=== PATIENT | female | born 1950 | race Caucasian/White ===

== ENCOUNTER → 2017-04-26 | Outpatient (CLI) | payer MEDICARE, BC ==
--- NOTE | 2017-04-26 16:24 | BD ---
EXAMINATION TYPE: MG DEXA axial skeleton. DATE OF EXAM: 04/26/2017 COMPARISON: 10/10/2013 CLINICAL HISTORY: 66-year-old female osteoporosis Height: 59 IN Weight: 121 LBS FRAX RISK QUESTIONS: Alcohol (3 or more units per day): NO Family History (Parent hip fracture): NO Glucocorticoids (More than 3mos): NO (Ex: prednisone, prednisolone, methylprednisolone, dexamethasone, and hydrocortisone). History of Fracture in Adulthood: NO Secondary Osteoporosis: 1. Type 1 Diabetes: NO 2. Hyperthyroidism: NO 3. Menopause before 45: NO 4. Malnutrition: NO 5. Chronic liver disease: NO Rheumatoid Arthritis: NO Current Tobacco Use: NO RISK FACTORS HISTORY OF: Family History of Osteoporosis: NO Active: YES Diet low in dairy products/other sources of calcium: YES Postmenopausal woman: AGE 48 Take estrogen and/or progesterone medications: NOT NOW How long: AGE 48 - 54 MEDICATIONS: Additional Medications: CALCIUM, VIT D, DETROL LA, LOVASTATIN, ATENOLOL, BABY ASPIRIN, MULTI VIT, EXAM MEASUREMENTS: Bone mineral densitometry was performed using the [employer] System. Bone mineral density as measured about the Lumbar spine is: ----- L1-L4(G/cm2): 0.919 T Score Values are as follows: ----- L2: -2.2 ----- L3: -1.7 ----- L4: -2.7 ----- L1-L4: -2.2 Bone mineral density has: Increased 2.5% since study of: 10/10/2013 Bone mineral density about the R hip (g/cm2): 0.894 Bone mineral density about the L hip (g/cm2): 0.890 T Score values are as follows: -----R Neck: -1.0 -----L Neck: -1.1 -----R Total: 0.0 -----L Total: -0.1 Bone mineral density has: Increased 6.0% since study of: 10/10/2013 IMPRESSION: Osteopenia (T Score between -2.5 and -1 as noted by T score values in the lumbar spine and left hip). There is slightly increased risk of fracture and the patient may be considered for treatment. Re-Screen 2-5 years. NOTE: T-SCORE=SD OF THE YOUNG ADULT MEAN.
--- NOTE | 2017-04-27 13:40 | MM ---
Reason for exam: screening (asymptomatic). Last mammogram was performed 1 year and 4 months ago. History: Patient is postmenopausal. Family history of premenopausal breast cancer in sister at age 40 and breast cancer in aunt at age 55. Took estrogen for 6 years beginning at age 48. Physical Findings: A clinical breast exam by your physician is recommended on an annual basis and results should be correlated with mammographic findings. MG 3D Screening Mammo W/Cad Bilateral CC and MLO view(s) were taken. Prior study comparison: December 17, 2015, bilateral MG screening mammo w CAD. October 10, 2013, bilateral digital screening mammo w/CAD. The breast tissue is heterogeneously dense. This may lower the sensitivity of mammography. Nodular density central right breast 6.1cm from nipple. This finding is changed when compared with previous exams. ASSESSMENT: Incomplete: need additional imaging evaluation, BI-RAD 0 RECOMMENDATION: Special view mammogram and ultrasound of the right breast. [facility] will attempt to contact patient to return for supplemental views and ultrasound.
== END | disposition home or self-care (01) ==
LOC: RADMAMWWP 12:55
PROVIDERS: ATTEND Obstetrics & Gynecology
DX: Z12.31 Encounter for screening mammogram for malignant neoplasm of breast (principal); M85.89 Other specified disorders of bone density and structure, multiple sites
CPT/HCPCS: 77080; 77063; G0202

== ENCOUNTER → 2017-05-05 | Outpatient (CLI) | payer MEDICARE, BC ==
--- NOTE | 2017-05-05 13:44 | MM ---
Reason for exam: additional evaluation requested from abnormal screening. Last mammogram was performed less than 1 month ago. History: Patient is postmenopausal. Family history of premenopausal breast cancer in sister at age 40 and breast cancer in aunt at age 55. Took estrogen for 6 years beginning at age 48. Physical Findings: Nurse did not find any significant physical abnormalities on exam. MG 3D Work Up W/Cad RT Spot compression CC, spot compression MLO, and LM view(s) were taken of the right breast. Prior study comparison: April 26, 2017, bilateral MG 3d screening mammo w/cad. December 17, 2015, bilateral MG screening mammo w CAD. The breast tissue is heterogeneously dense. This may lower the sensitivity of mammography. The previously described upper central right breast mass persists on additional views but was retrospectively present dating back to 2010 and can be considered benign. These results were verbally communicated with the patient and result sheet given to the patient on 05/05/17. ASSESSMENT: Benign, BI-RAD 2 RECOMMENDATION: Return to routine screening mammogram schedule for both breasts.
== END | disposition home or self-care (01) ==
LOC: RADMAMWWP 12:45
PROVIDERS: ATTEND Obstetrics & Gynecology
DX: R92.8 Other abnormal and inconclusive findings on diagnostic imaging of breast (principal)
CPT/HCPCS: G0206; G0279

== ENCOUNTER → 2017-06-08 | Outpatient (CLI) | payer MEDICARE, BC ==
--- NOTE | 2017-06-08 13:35 | US ---
EXAMINATION TYPE: US thyroid st tissue head/neck DATE OF EXAM: 06/08/2017 COMPARISON: 06/18/2016 prior thyroid ultrasound. CLINICAL HISTORY: E04.9 Goiter. GLAND SIZE: Right Lobe: 3.8 x 1.3 x 1.4cm Overall Parenchyma: heterogenous Left Lobe: 4.1 x 1.3 x 1.4 cm Overall Parenchyma: heterogeneous Isthmus Thickness: 0.3 cm NODULES RIGHT: # of nodules measured on right: 2 1. 0.6 X 0.5 x 0.5 cm hypoechoic solid nodule at the lower pole with well-defined margins; . This nodule is wider than tall and shows no intranodular vascularity. Prior size: 0.6 x 0.5 x 0.5 cm 2. 1.1 X 1.0 x 0.9 cm echogenic solid nodule at the lower pole with well-defined margins; . This no dule is wider than tall and shows no intranodular vascularity. Prior size: 1.0x 0.9 x 1.0 cm LEFT: # of nodules measured on left: 3 1. 1.1 X 09 x 1.3 cm isoechoic mixed nodule at the lower pole with well-defined margins; . This no dule is wider than tall and shows no intranodular vascularity. Prior size: 1.0 x 0.8 x 0.8 cm 2. 1.3 X 0.9 x 1.4 cm isoechoic mixed nodule at the lower pole with well-defined margins; . This no dule is wider than tall and shows no intranodular vascularity. Prior size: 1.4 x 0.7 x 0.9 cm 3. 1.1 X 1.0 x 1.1 cm isoechoic mixed nodule at the mid pole with well-defined margins; . This nodu le is wider than tall and shows no intranodular vascularity. Prior size: 1.1 x 0.7 x 1.0 cm ISTHMUS: # of nodules measured in the isthmus: 0 Bilateral neck scanned, no evidence of lymphadenopathy. 2 nodules on right, 3 nodules on left as described above. IMPRESSION: Overall stable findings multiple roughly 1 cm nodules redemonstrated bilaterally without significant interval change. No new greater than 1 cm solid or cystic nodules are seen.
== END ==
LOC: RADUSWWP 12:18
PROVIDERS: ATTEND Family Medicine
DX: E04.2 Nontoxic multinodular goiter (principal)
CPT/HCPCS: 76536

== ENCOUNTER → 2017-12-14 | Outpatient (CLI) | payer MEDICARE, BC ==
--- NOTE | 2017-12-14 15:07 | US ---
EXAMINATION TYPE: US thyroid st tissue head/neck DATE OF EXAM: 12/14/2017 COMPARISON: Thyroid ultrasound June 08, 2017 CLINICAL HISTORY: E04.1 Nontoxic Single Thyroid Nodule. GLAND SIZE: Right Lobe: 3.2 x 1.4 x 0.9 cm Overall Parenchyma: homogenous Left Lobe: 3.5 x 1.3 x 1.2 cm Overall Parenchyma: homogeneous Isthmus Thickness: 0.3 cm NODULES RIGHT: # of nodules measured on right: 2 1. 0.6 X 0.4 x 0.4 cm hypoechoic mixed nodule at the lower pole with well-defined margins. This no dule is wider as is tall and shows no intranodular vascularity. Prior size: 0.6 x 0.5 x 0.5 cm 2. 0.9 X 0.8 x 0.8 cm isoechoic solid nodule at the lower pole with well-defined margins. This nodu le is wider as is tall and shows no intranodular vascularity. Prior size: 1.1 x 1.0 x 0.9 cm LEFT: # of nodules measured on left: 3 1. 0.9 X 0.7 x 0.97 cm isoechoic clustered nodule at the lower pole with well-defined margins. Thi s nodule is taller than wide and shows no intranodular vascularity. Prior size: 1.1 x 0.9 x 1.4 cm 2. 1.2 X 0.9 x 0.8 cm isoechoic mixed nodule at the lower pole with well-defined margins. This nodu le is wider than tall. Prior size: 1.3 x 0.9 x 1.4 cm 3. 1.0 X 1.0 x 1.0 cm isoechoic mixed nodule at the mid pole with well-defined margins. This nodule is wider as is tall and shows intranodular vascularity. Prior size: 1.1 x 1.0 x 1.1 cm ISTHMUS: # of nodules measured in the isthmus: 0 Bilateral neck scanned, no evidence of lymphadenopathy. Small size thyroid with scattered small nodules are redemonstrated. No significant change from prior. IMPRESSION: As above, no new suspicious greater than 1 cm solid or cystic nodules seen.
== END | disposition home or self-care (01) ==
LOC: RADUSWWP 13:27
PROVIDERS: ATTEND Family Medicine
DX: E04.2 Nontoxic multinodular goiter (principal)
CPT/HCPCS: 76536

== ENCOUNTER → 2018-04-27 | Outpatient (CLI) | payer MEDICARE, BC ==
--- NOTE | 2018-05-01 10:31 | MM ---
Reason for exam: screening (asymptomatic). Last mammogram was performed 1 year ago. History: Patient is postmenopausal. Family history of premenopausal breast cancer in sister at age 40 and breast cancer in aunt at age 55. Took estrogen for 6 years beginning at age 48. Physical Findings: A clinical breast exam by your physician is recommended on an annual basis and results should be correlated with mammographic findings. MG 3D Screening Mammo W/Cad Bilateral CC and MLO view(s) were taken. Prior study comparison: May 05, 2017, right breast MG 3d work up w/cad RT. April 26, 2017, bilateral MG 3d screening mammo w/cad. The breast tissue is heterogeneously dense. This may lower the sensitivity of mammography. There is chronic nodularity in the right breast. No significant changes when compared with prior studies. ASSESSMENT: Benign, BI-RAD 2 RECOMMENDATION: Routine screening mammogram of both breasts in 1 year.
== END | disposition home or self-care (01) ==
LOC: RADMAMWWP 12:41
PROVIDERS: ATTEND Obstetrics & Gynecology
DX: Z12.31 Encounter for screening mammogram for malignant neoplasm of breast (principal)
CPT/HCPCS: 77063; 77067

== ENCOUNTER → 2018-08-03 | Outpatient (CLI) | payer MEDICARE, BC ==
--- NOTE | 2018-08-04 07:23 | US ---
EXAMINATION TYPE: US thyroid st tissue head/neck DATE OF EXAM: 08/03/2018 COMPARISON: 12/14/2017 and 06/08/2017 CLINICAL HISTORY: E04.1 goiter. follow up nodules. Hx of bx- normal. No thyroid meds. GLAND SIZE: Right Lobe: 3.7 x 1.1 x 1.2 cm Overall Parenchyma: homogenous Left Lobe: 3.7 x 1.2 x 1.0 cm Overall Parenchyma: homogeneous Isthmus Thickness: 0.2 cm NODULES RIGHT: # of nodules measured on right: 2 1. 0.6 X 0.4 x 0.3 cm hypoechoic mixed nodule at the lower pole with well-defined margins. This no dule is wider than tall and shows no intranodular vascularity. Prior size: 0.6 x 0.4 x 0.4 cm 2. 1.0 X 0.9 x 0.7 cm echogenic solid nodule at the lower pole with well-defined margins. This nodu le is wider than tall and shows intranodular vascularity. Prior size: 0.9 x 0.8 x 0.8 cm LEFT: # of nodules measured on left: 3 1. 1.1 X 0.8 x 0.8 cm mixed nodule at the lower pole with well-defined margins. This nodule is wi nga than tall and shows intranodular vascularity. Prior size: 0.9 x 0.7 x 1.0 cm 2. 1.3 X 0.9 x 0.8 cm mixed nodule at the lower pole with well-defined margins. This nodule is wid er than tall and shows intranodular vascularity. Prior size: 1.2 x 0.9 x 0.8 cm 3. 1.0 X 0.7 x 0.8 cm mixed nodule at the mid pole with well-defined margins. This nodule is taller than wide and shows no intranodular vascularity. Prior size: 1.0 x 1.0 x 1.0 cm ISTHMUS: # of nodules measured in the isthmus: 0 Bilateral neck scanned, no evidence of lymphadenopathy. IMPRESSION: Continued overall stable size of the bilateral thyroid nodules in a multinodular goiter. No new nodul es appreciated.
== END | disposition home or self-care (01) ==
LOC: RADUSWWP 15:34
PROVIDERS: ATTEND Family Medicine
DX: E04.2 Nontoxic multinodular goiter (principal)
CPT/HCPCS: 76536

== ENCOUNTER → 2019-01-25 | Outpatient (CLI) | payer MEDICARE, BC ==
--- NOTE | 2019-01-25 15:13 | US ---
EXAMINATION TYPE: US carotid duplex BILAT DATE OF EXAM: 01/25/2019 COMPARISON: NONE CLINICAL HISTORY: G45.3 Amaurosis Fugax. Confusion. EXAM MEASUREMENTS: RIGHT: Peak Systolic Velocity (PSV) cm/sec ----- Right CCA: 59.8 ----- Right ICA: 49.4 ----- Right ECA: 75.6 ICA/CCA ratio: 0.8 RIGHT: End Diastole cm/sec ----- Right CCA: 17.1 ----- Right ICA: 15.4 ----- Right ECA: 13.6 LEFT: Peak Systolic Velocity (PSV) cm/sec ----- Left CCA: 72.1 ----- Left ICA: 64.5 ----- Left ECA: 87.5 ICA/CCA ratio: 0.9 LEFT: End Diastole cm/sec ----- Left CCA: 21.5 ----- Left ICA: 27.5 ----- Left ECA: 12.8 VERTEBRALS (direction of flow): Right Vertebral: Antegrade Left Vertebral: Antegrade Rhythm: Normal Grayscale images show no significant plaque at carotid bulb level bilaterally. Velocity measurements and ratios remain within normal limits. IMPRESSION: No hemodynamically significant stenosis is seen in either internal carotid artery. Criteria for Assigning % of Stenosis / Diameter reduction (Estimation based on the indirect measurements of the internal carotid artery velocities (ICA PSV). 1. Normal (no stenosis)=ICA PSV < 125 cm/s: ratio < 2.0: ICA EDV<40 cm/s. 2. Less than 50% stenosis=ICA PSV < 125 cm/s: ratio < 2.0: ICA EDV<40 cm/s. 3. 50 to 69% stenosis=ICA PSV of 125 to 230 cm/s: ration 2.0 ? 4.0: ICA EDV 40-100 cm/s. 4. Greater than 70% stenosis to near occlusion= ICA PSV > 230 cm/s: ratio > 4.0: ICA EDV > 100 cm/s. 5. Near occlusion= ICA PSV velocities may be low or undetectable: variable ratio and ICA EDV. 6. Total occlusion=unable to detect flow.
--- NOTE | 2019-01-25 15:20 | US ---
EXAMINATION TYPE: US thyroid st tissue head/neck DATE OF EXAM: 01/25/2019 COMPARISON: Multiple US's, most recent August 03, 2018 CLINICAL HISTORY: E04.9 Goiter. GLAND SIZE: Right Lobe: 3.9 x 1.1 x 1.2 cm Overall Parenchyma: homogenous Left Lobe: 3.5 x 1.2 x 1.5 cm Overall Parenchyma: heterogeneous Isthmus Thickness: 0.2 cm NODULES RIGHT: # of nodules measured on right: 2 1. 1.0 X 0.8 x 1.0 cm isoechoic solid nodule at the lower pole with well-defined margins; . This n odule is wider than tall and shows intranodular vascularity. Prior size: 1.0 x 0.7 x 0.9 cm 2. 0.5 X 0.5 x 0.5 cm hypoechoic solid nodule at the lower pole with well-defined margins; . This n odule is wider than tall and shows intranodular vascularity. Prior size: 0.6 x 0.3 x 0.4 cm LEFT: # of nodules measured on left: 3 1. 1.1 X 0.8 x 0.9 cm hypoechoic mixed nodule at the mid pole with well-defined margins; present wi th microcalcifications. This nodule is wider than tall and shows intranodular vascularity. Prior size: 1.3 x 0.8 x 0.9 cm 2. 1.1 X 0.8 x 0.9 cm isoechoic mixed nodule at the lower pole with well-defined margins; . This no dule is wider than tall and shows intranodular vascularity. Prior size: 1.1 x 0.8 x 0.8 cm 3. 1.2 X 0.6 x 1.0 cm isoechoic mixed nodule at the lower pole with well-defined margins; . This no dule is wider than tall and shows intranodular vascularity. Prior size: 1.0 x 0.8 x 0.7 cm ISTHMUS: # of nodules measured in the isthmus: 0 Bilateral neck scanned, no evidence of lymphadenopathy. Nodules as described, the left nodules are all side by side and could potentially be measured as one large nodules measuring 2.7 x 1.0 cm, there is no normal tissue between the nodules. IMPRESSION: Findings consistent with multinodular goiter redemonstrated as detailed above. No new gre ater than 1 cm nodules clearly seen.
== END | disposition home or self-care (01) ==
LOC: RADUSWWP 14:14
PROVIDERS: ATTEND Family Medicine
DX: E04.2 Nontoxic multinodular goiter (principal); G45.3 Amaurosis fugax
CPT/HCPCS: 76536; 93880

== ENCOUNTER → 2020-01-02 | Outpatient (CLI) | payer MEDICARE, BC ==
[2020-01-02 10:37] LABS: African American GFR (CKD) >90 (>60 ml/min/1.73 sqM); Blood Urea Nitrogen 16 mg/dL (7-17); Non-African American GFR(CKD) 79 (>60 ml/min/1.73 sqM)
--- NOTE | 2020-01-02 13:53 | CT ---
EXAMINATION TYPE: CT angio chest DATE OF EXAM: 01/02/2020 COMPARISON: None HISTORY: aneurysm, postprocedural states CT DLP: 286.2 mGycm Automated exposure control for dose reduction was used. CONTRAST: CTA scan of the thorax is performed without and with IV Contrast, patient injected with 100 mL of Iso renee 370, pulmonary embolism protocol. MIP images are created and reviewed. 3D reconstructed images are created on an independent workstation and reviewed. FINDINGS: LUNGS: The lungs are grossly clear, there is no concerning parenchymal mass or nodule identified. Mi nimal scarring noted anteriorly axial image #35, #32 in the right and left lungs respectively There i s no pleural effusion or pneumothorax seen. The tracheobronchial tree is patent. AORTA: Root of the aorta measures 3.6 cm, there is a metallic density present as well as probable po st procedural change, proximal ascending aorta measures 2.5 cm, proximal descending aorta is 2.8 cm. At the level of the aortic hiatus the aorta measures 2 cm.. MEDIASTINUM: There is satisfactory enhancement of the pulmonary artery and its branches, there is no CT evidence for pulmonary embolism. There are no greater than 1 cm hilar or mediastinal lymph nodes. No pericardial effusion is seen. OTHER: Small hiatal hernia is present scattered low attenuation foci within the liver may represent cysts. IMPRESSION: AORTIC MEASUREMENTS DESCRIBED
== END | disposition home or self-care (01) ==
LOC: RADCTMAIN 10:02
PROVIDERS: ATTEND Internal Medicine Interventional Cardiology
DX: Z09 Encounter for follow-up examination after completed treatment for conditions other than malignant neoplasm (principal); I77.89 Other specified disorders of arteries and arterioles; Z98.890 Other specified postprocedural states
CPT/HCPCS: 82565; 84520; 71275; Q9967

== ENCOUNTER → 2020-02-08 | Outpatient (CLI) | payer MEDICARE, BC ==
--- NOTE | 2020-02-08 13:10 | US ---
EXAMINATION TYPE: US thyroid st tissue head/neck DATE OF EXAM: 02/08/2020 COMPARISON: US CLINICAL HISTORY: E04.9 nontoxic goiter, unspecified. Goiter, F/U nodules GLAND SIZE: Right Lobe: 3.2 x 1.2 x 1.3 cm Overall Parenchyma: homogenous Left Lobe: 4.0 x 1.2 x 1.4 cm Overall Parenchyma: homogeneous Isthmus Thickness: 0.3 cm NODULES RIGHT: # of nodules measured on right: 2 1. 1.0 X 0.7 x 1.2 cm isoechoic solid nodule at the lower pole with well-defined margins; This nod ule is wider than tall and shows intranodular vascularity. Prior size: 1.0 x 0.8 x 1.0 cm 2. 0.6 X 0.4 x 0.5 cm hypoechoic solid nodule at the lower pole with well-defined margins; This nod ule is wider than tall and shows intranodular vascularity. Prior size: 0.5 x 0.5 x 0.5 cm LEFT: # of nodules measured on left: 3 1. 1.1 X 0.7 x 1.0 cm hypoechoic mixed nodule at the mid pole with well-defined margins; This nod ule is wider than tall and shows intranodular vascularity. Prior size: 1.1 x 0.8 x 0.9 cm 2. 1.3 X 0.8 x 1.0 cm isoechoic solid nodule at the lower pole with well-defined margins; This nodu le is wider than tall and shows intranodular vascularity. Prior size: 1.1 x 0.8 x 0.9 cm 3. 0.9 X 0.7 x 0.9 cm isoechoic mixed nodule at the lower pole with well-defined margins; This nodu le is wider than tall and shows intranodular vascularity. Prior size: 1.2 x 0.6 x 1.0 cm Bilateral neck scanned, no evidence of lymphadenopathy. Essentially stable nodules bilaterally. IMPRESSION: Stable multinodular thyroid
== END | disposition home or self-care (01) ==
LOC: RADUSWWP 12:43
PROVIDERS: ATTEND Family Medicine
DX: E04.2 Nontoxic multinodular goiter (principal)
CPT/HCPCS: 76536

== ENCOUNTER → 2021-05-12 | Outpatient (CLI) | payer MEDICARE, BC ==
--- NOTE | 2021-05-18 12:06 | MM ---
Reason for exam: screening (asymptomatic). Last mammogram was performed 3 years ago. History: Patient is postmenopausal. Family history of premenopausal breast cancer in sister at age 40 and breast cancer in aunt at age 55. Took hormonal contraceptives for 20 years beginning at age 22. Took estrogen for 6 years beginning at age 48. Physical Findings: A clinical breast exam by your physician is recommended on an annual basis and results should be correlated with mammographic findings. MG 3D Screening Mammo W/Cad Bilateral CC and MLO view(s) were taken. Prior study comparison: April 27, 2018, bilateral MG 3d screening mammo w/cad. May 05, 2017, right breast MG 3d work up w/cad RT. The breast tissue is heterogeneously dense. This may lower the sensitivity of mammography. There is chronic nodularity in the right breast. No significant changes when compared with prior studies. ASSESSMENT: Benign, BI-RAD 2 RECOMMENDATION: Routine screening mammogram of both breasts in 1 year.
== END | disposition home or self-care (01) ==
LOC: RADMAMWWP 14:06
PROVIDERS: ATTEND Obstetrics & Gynecology
DX: Z12.31 Encounter for screening mammogram for malignant neoplasm of breast (principal); M89.9 Disorder of bone, unspecified
CPT/HCPCS: 77063; 77067

== ENCOUNTER → 2022-05-17 | Outpatient (CLI) | payer MEDICARE, BC ==
--- NOTE | 2022-05-18 18:51 | MM ---
Reason for Exam: Screening (asymptomatic). Last screening mammogram was performed 12 month(s) ago. Patient History: Menarche at age 18. First Full-Term at age 20. Left ovary removed at age 48. Right ovary removed at age 48. Hysterectomy at age 48. Postmenopausal. Estrogen for 6 years from age 48 until age 54. Hormonal Contraceptives for 20 years from age 22 until age 42. Maternal aunt had breast cancer, age 55. Sister had breast cancer, age 40. Risk Values: Jennifer 5 year model risk: 2.9%. NCI Lifetime model risk: 8.4%. Prior Study Comparison: 05/05/2017 Right Diagnostic Mammogram, [facility]. 04/27/2018 Bilateral Screening Mammogram, [facility]. 05/12/2021 Bilateral Screening Mammogram, [facility]. Tissue Density: The breast tissue is heterogeneously dense. This may lower the sensitivity of mammography. Findings: Analyzed By CAD. No suspicious groups of microcalcifications, spiculated or lobular masses, architectural distortion or other secondary signs of malignancy are mammographically apparent. Overall Assessment: Benign, BI-RAD 2 Management: Screening Mammogram of both breasts in 1 year. A negative mammogram report should not preclude additional follow up of suspicious palpable abnormalities. Patient should continue monthly self breast exam. A clinical breast exam by your physician is recommended on an annual basis and results should be correlated with mammographic findings. Electronically signed and approved by: Magan Tamez D.O. Radiologis
== END | disposition home or self-care (01) ==
LOC: RADMAMWWP 13:25
PROVIDERS: ATTEND Family Medicine
DX: Z12.31 Encounter for screening mammogram for malignant neoplasm of breast (principal); Z80.3 Family history of malignant neoplasm of breast; Z78.0 Asymptomatic menopausal state
CPT/HCPCS: 77063; 77067

== ENCOUNTER → 2022-05-17 | Outpatient (CLI) | payer MEDICARE, BC ==
[2022-05-17 14:33] LABS: African American GFR (CKD) >90 (>60 ml/min/1.73 sqM); Blood Urea Nitrogen 15 mg/dL (7-17); Non-African American GFR(CKD) 78 (>60 ml/min/1.73 sqM)
== END | disposition home or self-care (01) ==
LOC: RADCTMAIN 13:45
PROVIDERS: ATTEND Internal Medicine Interventional Cardiology
DX: Z98.890 Other specified postprocedural states (principal)
CPT/HCPCS: 82565; 84520

== ENCOUNTER 2022-11-18 10:25 | Emergency (ER) | payer MEDICARE, BC ==
--- NOTE | 2022-11-18 11:46 | CT ---
EXAMINATION TYPE: CT brain rich wo con DATE OF EXAM: 11/18/2022 COMPARISON: None HISTORY: 72-year-old female pain after FALL, LEFT EYE BRUISING CT DLP: 1249.6 mGycm Automated exposure control for dose reduction was used. Technique: Examination of the head was done in axial plane without intravenous contrast. Coronal and sagittal reconstructions performed. CT of the cervical spine was obtained in axial plane without intravenous injection of contrast mater ial. Coronal and sagittal reformatted images were obtained from the axial views for evaluation of f ractures, spinal alignment and canal. FINDINGS: Head: There is no evidence of acute intracranial hemorrhage, acute ischemic changes, mass, mass-effect, or extra-axial fluid collection. There is no effacement of cerebral sulci or basal subarachnoid cister ns. There is no hydrocephalus. There is no midline shift. Dumont-white matter distinction is preserv ed. Left supraorbital soft tissue swelling in left frontotemporal scalp hematoma. No underlying calvarial fracture. Underlying orbits and globes appear intact. Rightward nasal septal deviation. Mastoid air cells are well pneumatized. Mild cerebral cortical volume loss. Encephalomalacia lateral right frontal lobe related to prior infa rct or prior trauma. Cervical spine: No precervical junction of the body, predental space widening, or prevertebral soft tissue swelling. Moderate degenerative disc disease C5-C6 with disc osteophyte complex mildly narrowing the spinal can al. No acute fracture of the cervical spine. Facet arthropathy and uncovertebral joint arthropathy lower cervical spine. Alignment is maintained. Mild bilateral neuroforaminal narrowing at C4-C5 and C5-C6. Sagittal and coronal reformatted images confirm above findings. COMBINED IMPRESSION: 1. No acute intracranial abnormality seen. Left supraorbital soft tissue swelling and left frontotemp oral scalp contusion/hematoma. 2. No acute fracture or malalignment of the cervical spine. Mild to moderate spondylotic change parti cularly at C5-C6.
--- NOTE | 2022-11-18 11:49 | ED ---
Fall HPI - General Chief Complaint: Fall Stated Complaint: fall - head injury Time Seen by Provider: 11/18/22 10:44 Source: patient, family, old records reviewed Mode of arrival: ambulatory Limitations: no limitations - History of Present Illness Initial Comments: 72-year-old female presents emergency Department with chief complaint of head injury. Patient states she went to get on a step stool to stop states the collapse. Patient states his happened yesterday. She noticed some bruising left forehead region has worsened throughout the night and today. She does take a baby aspirin. She has mild discomfort over the area denies any significant dizziness no neck or back pain no extremity pain. - Related Data Home Medications Medication Instructions Recorded Confirmed Albuterol Sulfate [Proair Hfa] 1 puff INHALATION DAILY PRN 06/02/15 06/03/15 Alendronate Sodium 70 mg PO WE 06/02/15 06/03/15 Aspirin [Adult Low Dose Aspirin EC] 81 mg PO DAILY 06/02/15 06/03/15 Beclomethasone Dipropionate [Qvar 1 puff INHALATION DAILY PRN 06/02/15 06/03/15 40 mcg/puff] Calcium Carbonate/Vitamin D3 1 tab PO DAILY 06/02/15 06/03/15 [Calcium 600 + Vit D Tablet] Lovastatin [Mevacor] 20 mg PO HS 06/02/15 06/03/15 Multivitamins, Thera [Multivitamin] 1 tab PO DAILY 06/02/15 06/03/15 Tolterodine [Detrol] 2 mg PO DAILY 06/02/15 06/03/15 Zolpidem [Ambien] 5 mg PO HS PRN 06/02/15 06/03/15 atenoloL 25 mg PO QAM 06/02/15 06/03/15 valACYclovir HCL [Valtrex] 500 mg PO DAILY PRN 06/02/15 06/03/15 Allergies Allergy/AdvReac Type Severity Reaction Status Date / Time No Known Allergies Allergy Verified 11/18/22 10:42 Review of Systems ROS Statement: Those systems with pertinent positive or pertinent negative responses have been documented in the HPI. ROS Other: All systems not noted in ROS Statement are negative. Past Medical History Past Medical History: Asthma, Hyperlipidemia, Hypertension, Thyroid Disorder Additional Past Medical History / Comment(s): CONGENITAL BISCUSPID VALVE. URINARY FREQUENCY. OSTEOPOROSIS. THYROID NODULES. GENITAL HERPES. History of Any Multi-Drug Resistant Organisms: None Reported Past Surgical History: Cholecystectomy, Coronary Bypass/CABG, Hysterectomy Additional Past Surgical History / Comment(s): CABG IN 2003. Past Anesthesia/Blood Transfusion Reactions: No Reported Reaction Past Psychological History: No Psychological Hx Reported Smoking Status: Never smoker Past Alcohol Use History: None Reported Past Drug Use History: None Reported General Exam Limitations: no limitations General appearance: alert, in no apparent distress Head exam: Present: atraumatic. Absent: normocephalic, normal inspection (Left frontal hematoma) Eye exam: Present: PERRL, EOMI, periorbital swelling (Moderate left-sided periorbital swelling and ecchymosis), periorbital tenderness. Absent: normal appearance, scleral icterus, conjunctival injection ENT exam: Present: normal exam, normal oropharynx, mucous membranes moist Neck exam: Present: normal inspection, full ROM. Absent: tenderness, meningismus, lymphadenopathy Respiratory exam: Present: normal lung sounds bilaterally. Absent: respiratory distress, wheezes, rales, rhonchi, stridor Cardiovascular Exam: Present: regular rate, normal rhythm, normal heart sounds. Absent: systolic murmur, diastolic murmur, rubs, gallop, clicks Neurological exam: Present: alert, oriented X3, CN II-XII intact, reflexes normal. Absent: motor sensory deficit, other Course Vital Signs 11/18/22 11/18/22 10:39 12:03 Temperature 97.9 F 98 F Pulse Rate 76 74 Respiratory 18 16 Rate Blood Pressure 121/77 120/76 O2 Sat by Pulse 100 100 Oximetry Medical Decision Making - Medical Decision Making Was pt. sent in by a medical professional or institution (, PA, AUTOMATION TECHNICIAN, urgent care, hospital, or [place] health care facility...) When possible be specific @ -no Did you speak to anyone other than the patient for history (EMS, parent, family, police, friend...)? What history was obtained from this source @ -No Did you review nursing and triage notes (agree or disagree)? Why? @ -I reviewed and agree with nursing and triage notes Were old charts reviewed (outside hosp., previous admission, EMS record, old EKG, old radiological studies, urgent care reports/EKG's, [place] health care facility records)? Report findings @ -No old charts were reviewed Differential Diagnosis (chest pain, altered mental status, abdominal pain women, abdominal pain men, vaginal bleeding, weakness, fever, dyspnea, syncope, headache, dizziness, GI bleed, back pain, seizure, CVA, palpatations, mental health, musculoskeletal)? @ -Intracranial hemorrhage, facial contusion, facial fracture, skull fracture EKG interpreted by me (3pts min.). @ -None X-rays interpreted by me (1pt min.). @ -None done CT interpreted by me (1pt min.). @ -CT brain, C-spine no acute intracranial hemorrhage, skull fracture or cervical fracture noted U/S interpreted by me (1pt. min.). @ -None done What testing was considered but not performed or refused? (CT, X-rays, U/S, labs)? Why? @ -None What meds were considered but not given or refused? Why? @ -None Did you discuss the management of the patient with other professionals (professionals i.e. , PA, AUTOMATION TECHNICIAN, lab, RT, psych nurse, neonatal social worker, criminal justice lawyer, teacher, biological technical officer, case investigator)? Give summary @ -No Was smoking cessation discussed for >3mins.? @ -No Was critical care preformed (if so, how long)? @ -No Were there social determinants of health that impacted care today? How? (Homelessness, low income, unemployed, alcoholism, drug addiction, transportation, low edu. Level, literacy, decrease access to med. care, longterm, rehab)? @ -No Was there de-escalation of care discussed even if they declined (Discuss DNR or withdrawal of care, Hospice)? DNR status @ -No What co-morbidities impacted this encounter? (DM, HTN, Smoking, COPD, CAD, Cancer, CVA, ARF, Chemo, Hep., AIDS, mental health diagnosis, sleep apnea, morbid obesity)? @ -None Was patient admitted / discharged? Hospital course, mention meds given and route, prescriptions, significant lab abnormalities, going to OR and other pertinent info. @ -Discharge patient CT is negative she is neurologically intact she has a frontal hematoma we discuss close follow-up return parameters Undiagnosed new problem with uncertain prognosis? @ -No Drug Therapy requiring intensive monitoring for toxicity (Heparin, Nitro, Insulin, Cardizem)? @ -No Were any procedures done? @ -No Diagnosis/symptom? @ -Fall, head injury, facial contusion Acute, or Chronic, or Acute on Chronic? @ -Acute Uncomplicated (without systemic symptoms) or Complicated (systemic symptoms)? @ -Uncomplicated. Side effects of treatment? @ -No Exacerbation, Progression, or Severe Exacerbation? @ -No Poses a threat to life or bodily function? How? (Chest pain, [place], [place], pneumonia, PE, COPD, DKA, ARF, appy, cholecystitis, CVA, Diverticulitis, Homicidal, Suicidal, threat to staff... and all critical care pts) @ -No Disposition Clinical Impression: Fall, Facial contusion, Periorbital hematoma of left eye Disposition: HOME SELF-CARE Condition: Stable Instructions (If sedation given, give patient instructions): Head Injury (ED), Hematoma (ED) Additional Instructions: Please return to the Emergency Department if symptoms worsen or any other concerns. Is patient prescribed a controlled substance at d/c from ED?: No Referrals: Magan Shore DO [Primary Care Provider] - 1-2 days Time of Disposition: 11:49
[2022-11-18 12:06] VITALS: BP 120/76; PULSE 74; RESP 16; TEMP 98
== END 2022-11-18 12:06 | disposition home or self-care (01) ==
LOC: EC 10:25
DX: S00.03XA Contusion of scalp, initial encounter (principal); S00.12XA Contusion of left eyelid and periocular area, initial encounter; I10 Essential (primary) hypertension; J45.909 Unspecified asthma, uncomplicated; E78.5 Hyperlipidemia, unspecified; Z79.899 Other long term (current) drug therapy; Z79.82 Long term (current) use of aspirin; Z90.49 Acquired absence of other specified parts of digestive tract; X58.XXXA Exposure to other specified factors, initial encounter
CPT/HCPCS: 70450; 72125; 99284

== ENCOUNTER 2022-11-23 03:05 | Emergency (ER) | payer MEDICARE, BC ==
[2022-11-23 03:11] VITALS: TEMP 98.1
--- NOTE | 2022-11-23 05:26 | XR ---
EXAMINATION TYPE: XR chest 2V DATE OF EXAM: 11/23/2022 COMPARISON: CT chest May 26, 2022 HISTORY: Chest and right rib pain TECHNIQUE: Frontal and lateral views of the chest are obtained. FINDINGS: Overlying sternal wires are redemonstrated. There is left basilar linear opacity consistent with scarring and/or atelectasis. Right lung is clear. Mild cardiomegaly redemonstrated. The osseo us structures are intact. IMPRESSION: Mild cardiomegaly with left basilar linear scarring and/or atelectasis.
[2022-11-23 05:33] VITALS: RESP 18
[2022-11-23] MEDS ORDERED: LIDOCAINE 5% PATCH TOPICAL STA (05:59)
--- NOTE | 2022-11-23 06:02 | ED ---
General Adult HPI - General Chief complaint: Fall Stated complaint: Fall last week, Rib pain Time Seen by Provider: 11/23/22 03:33 Source: patient, family, RN notes reviewed, old records reviewed Mode of arrival: wheelchair Limitations: no limitations - History of Present Illness Initial comments: Patient is a 72-year-old female with past medical history that is unremarkable who presents emergency Department complaining of bilateral rib pain after a fall last week. Patient was evaluated last week for a fall and CT head and C-spine were obtained. States she started developing rib pain over the last week. Stop taking Tylenolof pain was worse which is why she presents for evaluation. Denies any worsening headache. Endorses reproducible rib pain along the bilateral inferior most ribs. Worse with movement of the torso. Worse on palpation. Denies any nausea, vomiting, abdominal pain. Does have a cardiac history. Presents as she is uncertain why rib pain was getting worse, however she did stop taking pain medications at home. Presents here further evaluation. - Related Data Home Medications Medication Instructions Recorded Confirmed Albuterol Sulfate [Proair Hfa] 1 puff INHALATION DAILY PRN 06/02/15 06/03/15 Alendronate Sodium 70 mg PO WE 06/02/15 06/03/15 Aspirin [Adult Low Dose Aspirin EC] 81 mg PO DAILY 06/02/15 06/03/15 Beclomethasone Dipropionate [Qvar 1 puff INHALATION DAILY PRN 06/02/15 06/03/15 40 mcg/puff] Calcium Carbonate/Vitamin D3 1 tab PO DAILY 06/02/15 06/03/15 [Calcium 600 + Vit D Tablet] Lovastatin [Mevacor] 20 mg PO HS 06/02/15 06/03/15 Multivitamins, Thera [Multivitamin] 1 tab PO DAILY 06/02/15 06/03/15 Tolterodine [Detrol] 2 mg PO DAILY 06/02/15 06/03/15 Zolpidem [Ambien] 5 mg PO HS PRN 06/02/15 06/03/15 atenoloL 25 mg PO QAM 06/02/15 06/03/15 valACYclovir HCL [Valtrex] 500 mg PO DAILY PRN 06/02/15 06/03/15 Previous Rx's Medication Instructions Recorded Cyclobenzaprine [Flexeril] 5 mg PO TID PRN 5 Days #15 tablet 11/23/22 Lidocaine 5% Patch [Lidoderm 5% 1 patch TOPICAL DAILY PRN 14 Days 11/23/22 Patch] #14 patch Allergies Allergy/AdvReac Type Severity Reaction Status Date / Time No Known Allergies Allergy Verified 11/18/22 10:42 Review of Systems ROS Statement: Those systems with pertinent positive or pertinent negative responses have been documented in the HPI. Review of Systems: CONST: Denies fever EYES: Denies blurry vision ENT: Denies nasal congestion C/V: Denies Chest pain RESP: Denies shortness of breath GI: Denies abdominal pain : Denies dysuria SKIN: Denies rash. MSK: Endorses bilateral rib pain NEURO: Denies headache ROS Other: All systems not noted in ROS Statement are negative. Past Medical History Past Medical History: Asthma, Hyperlipidemia, Hypertension, Thyroid Disorder Additional Past Medical History / Comment(s): CONGENITAL BISCUSPID VALVE. URINARY FREQUENCY. OSTEOPOROSIS. THYROID NODULES. GENITAL HERPES. History of Any Multi-Drug Resistant Organisms: None Reported Past Surgical History: Cholecystectomy, Coronary Bypass/CABG, Hysterectomy Additional Past Surgical History / Comment(s): CABG IN 2003. Past Anesthesia/Blood Transfusion Reactions: No Reported Reaction Past Psychological History: No Psychological Hx Reported Smoking Status: Never smoker Past Alcohol Use History: None Reported Past Drug Use History: None Reported General Exam - General Exam Comments Initial Comments: General: Appears in mild distress secondary to rib pain. HEAD: Bruises located over the left forehead as well as around the left eye that appears to be approximately a week old which does align with the fall 1 week ago. EYES: PERRLA, EOMI, conjunctiva normal, no discharge. Pupils are 3 mm and equal bilaterally. ENT: Hearing grossly intact, normal oropharynx. RESPIRATORY: Clear breath sounds bilaterally. No wheezes, rales, or rhonchi. C/V: Regular rate and rhythm. S1 and S2 auscultated, no edema, peripheral pulses 2+ and intact throughout ABD: Abd is soft, nontender, nondistended EXT: Patient has reproducible chest wall pain located over the inferior most ribs on the left in the anterior as point tenderness over the inferior most ribs in the anterior axillary line on the right. No obvious deformities palpated. SKIN: No rashes or lesions observed on exposed skin. NEURO: Alert and oriented 4. Limitations: no limitations Course Vital Signs 11/23/22 11/23/22 03:06 05:21 Temperature 98.1 F Pulse Rate 78 62 Respiratory 20 18 Rate Blood Pressure 174/76 132/80 O2 Sat by Pulse 96 95 Oximetry Medical Decision Making - Medical Decision Making Was pt. sent in by a medical professional or institution (, PA, ELECTRICAL LINEWORKER, urgent care, hospital, or senior living...) When possible be specific @ -No Did you speak to anyone other than the patient for history (EMS, parent, family, police, friend...)? What history was obtained from this source @ -No Did you review nursing and triage notes (agree or disagree)? Why? @ -I reviewed and agree with nursing and triage notes Were old charts reviewed (outside hosp., previous admission, EMS record, old EKG, old radiological studies, urgent care reports/EKG's, senior living records)? Report findings @ -Last week's visit was reviewed including CT imaging which showed no acute intracranial process. Patient did have the hematoma located over the left frontotemporal scalp which is still present. Differential Diagnosis (chest pain, altered mental status, abdominal pain women, abdominal pain men, vaginal bleeding, weakness, fever, dyspnea, syncope, headache, dizziness, GI bleed, back pain, seizure, CVA, palpatations, mental health, musculoskeletal)? @ -Rib pain, fall, rib contusion, rib fracture. This list is not all inclusive. EKG interpreted by me (3pts min.). @ -As above X-rays interpreted by me (1pt min.). @ -Chest x-ray revealed no evidence of obvious acute cardio primary process, injury. CT interpreted by me (1pt min.). @ -None done U/S interpreted by me (1pt. min.). @ -None done What testing was considered but not performed or refused? (CT, X-rays, U/S, labs)? Why? @ -None What meds were considered but not given or refused? Why? @ -None Did you discuss the management of the patient with other professionals (professionals i.e. , PA, ELECTRICAL LINEWORKER, lab, RT, psych nurse, health and social care teacher, freight car repairer, teacher, correction officer city or county jail, telephonic case manager)? Give summary @ -No Was smoking cessation discussed for >3mins.? @ -No Was critical care preformed (if so, how long)? @ -No Were there social determinants of health that impacted care today? How? (Homelessness, low income, unemployed, alcoholism, drug addiction, transportation, low edu. Level, literacy, decrease access to med. care, skilled nursing, rehab)? @ -No Was there de-escalation of care discussed even if they declined (Discuss DNR or withdrawal of care, Hospice)? DNR status @ -No What co-morbidities impacted this encounter? (DM, HTN, Smoking, COPD, CAD, Cancer, CVA, ARF, Chemo, Hep., AIDS, mental health diagnosis, sleep apnea, morbid obesity)? @ -None Was patient admitted / discharged? Hospital course, mention meds given and route, prescriptions, significant lab abnormalities, going to OR and other pertinent info. @ -Based on the patient's presentation and physical exam, presents with rib pain secondary to fall from last week. I'm concerned for rib contusion and possible pulmonary injury. We will obtain chest x-ray as well as screening EKG. She was in agreement with this plan. She will receive lidocaine patch for analgesia. Vital signs within acceptable limits. Patient has healing injuries from the fall on her face. No imaging of the chest was done last week. Patient fell off a ladder last week landed on her ribs. Imaging was unremarkable. EKG within acceptable limits. I discussed the workup with the patient. She has what appears to be reproducible chest wall pain likely secondary to rib contusions, patient will be started on analgesia medications at home including lidocaine patches, Flexeril. Recommended use of an incentive spirometer which will be provided as well. Strict return precautions discussed including signs of pneumonia. Patient was in agreement with this plan. Undiagnosed new problem with uncertain prognosis? @ -No Drug Therapy requiring intensive monitoring for toxicity (Heparin, Nitro, Insulin, Cardizem)? @ -No Were any procedures done? @ -No Diagnosis/symptom? @ -Recent fall, rib contusion Acute, or Chronic, or Acute on Chronic? @ -Acute Uncomplicated (without systemic symptoms) or Complicated (systemic symptoms)? @ -Complicated Side effects of treatment? @ -No Exacerbation, Progression, or Severe Exacerbation? @ -No Poses a threat to life or bodily function? How? (Chest pain, [place], [place], pneumonia, PE, COPD, DKA, ARF, appy, cholecystitis, CVA, Diverticulitis, Homicidal, Suicidal, threat to staff... and all critical care pts) @ -No - EKG Data -: EKG Interpreted by Me EKG Comments: 12-lead Electrocardiogram Interpretation Note EKG was reviewed and interpreted by myself. 12-lead ECG performed at 0351 is interpreted by me as revealing normal sinus rhythm with first-degree AV block at a rate of 68 beats per minute. [place] is normal. [place] interval is 211 ms, QRS duration is 88 ms, QTc is 414 ms.. There were no ST or T wave abnormalities to suggest myocardial ischemia or injury. R wave progression across the precordium was satisfactory. By my interpretation this EKG is non-diagnostic for acute ischemia. Disposition Clinical Impression: Rib contusion Disposition: HOME SELF-CARE Condition: Good Instructions (If sedation given, give patient instructions): Fall Prevention (ED), Rib Contusion (ED) Prescriptions: Cyclobenzaprine [Flexeril] 5 mg PO TID PRN 5 Days #15 tablet PRN Reason: Pain Lidocaine 5% Patch [Lidoderm 5% Patch] 1 patch TOPICAL DAILY PRN 14 Days #14 patch PRN Reason: Pain Is patient prescribed a controlled substance at d/c from ED?: No Referrals: Magan Shore DO [Primary Care Provider] - 1-2 days Time of Disposition: 05:56
[2022-11-23 06:55] VITALS: BP 131/60; PULSE 67
== END 2022-11-23 06:55 | disposition home or self-care (01) ==
LOC: EC 03:05
DX: S20.219A Contusion of unspecified front wall of thorax, initial encounter (principal); J45.909 Unspecified asthma, uncomplicated; E78.5 Hyperlipidemia, unspecified; I10 Essential (primary) hypertension; Z79.899 Other long term (current) drug therapy; Z79.82 Long term (current) use of aspirin; W18.30XA Fall on same level, unspecified, initial encounter
CPT/HCPCS: 71046; 93005; 99284

== ENCOUNTER → 2023-09-28 | Outpatient (CLI) | payer MEDICARE, BC ==
[2023-09-28 14:04] LABS: African American GFR (CKD) >90 (>60 ml/min/1.73 sqM); Blood Urea Nitrogen 13 mg/dL (7-17); Non-African American GFR(CKD) 81 (>60 ml/min/1.73 sqM)
--- NOTE | 2023-09-28 15:14 | CT ---
CTA CHEST EXAMINATION TYPE: CT angio chest DATE OF EXAM: 09/28/2023 INDICATION: f/u aneurysm CT DLP: 302.6 mGycm, Automated exposure control for dose reduction was used. CONTRAST: Patient injected with 100 mL of Isovue 370. COMPARISON: 05/26/2022 TECHNIQUE: CT of the chest is performed on a spiral scan at 2 mm thick sections. Study is performed with intravenous contrast timed for evaluation for aortic aneurysm. This will limit additional porti ons of the evaluation. 3-D MIP images reconstructed by the technologist are reviewed on the computer in the coronal and sagittal planes. FINDINGS: No persistent filling defects are evident to suggest an acute pulmonary embolism. No mediastinal or hilar adenopathy enlarged by CT criteria is evident. The ascending aorta diameter at the level of the main pulmonary artery is 3.0 cm. The main pulmonary artery diameter at the bifurcation is 2.4 cm. The aorta at the aortic root measures 2.9 cm. Aorta a t the diaphragm measures 1.9 cm. Transverse dimension of the aortic arch 2.2 cm. The 4.1 cm measureme nt obtained on the coronal image, series 12 image 13, is stable from comparison. Lung windows are clear. Limited CT sections were through the upper abdomen. Upper abdomen appears unremarkable. There is some heterogeneity of the thyroid gland. This has a similar appearance to prior study. IMPRESSION: 1. Stable appearance of the thoracic aorta.
== END | disposition home or self-care (01) ==
LOC: RADCTMAIN 13:00
PROVIDERS: ATTEND Internal Medicine Interventional Cardiology
DX: Z98.890 Other specified postprocedural states (principal)
CPT/HCPCS: 82565; 84520; 71275; 36415; Q9967

== ENCOUNTER 2024-12-14 12:07 | Day surgery (SDC) | payer MEDICARE, BC ==
[2024-12-14] MEDS: IV FLUID CONTINUATION 1,000 ML IV ONE ×2 (13:31→14:02)
[2024-12-14 13:34] VITALS: TEMP 97.8
[2024-12-14] MEDS: LACTATED RINGERS 1,000 ML IV SCH (13:37)
[2024-12-14] MEDS ORDERED: PROPOFOL 10 MG/ML 20 ML VIAL IV ONE (14:10)
--- NOTE | 2024-12-14 14:31 | P.PCN ---
Date of Procedure: 12/14/24 Procedure(s) Performed: BRIEF HISTORY: Patient is a 74-year-old pleasant white female scheduled for an elective colonoscopy as a part of screening for colon cancer. PROCEDURE PERFORMED: Colonoscopy. PREOPERATIVE DIAGNOSIS: Screening for colon cancer. IV sedation per Anesthesia. PROCEDURE: After informed consent was obtained, the patient, was brought into the endoscopy unit. IV sedation was administered by Anesthesia under continuous monitoring. Digital rectal examination was normal. Initially the Olympus CF-160 flexible video colonoscope was then inserted in the rectum, gradually advanced into the cecum without any difficulty. Careful examination was performed as the scope was gradually being withdrawn. Ileocecal valve and the appendiceal orifice were visualized and appeared normal. Prep was excellent. Mucosa of the cecum, ascending colon, transverse colon, descending colon, sigmoid colon, and rectum appeared normal. Scattered sigmoid diverticulosis. Retroflexion was performed in the rectum and no lesions were seen. The patient tolerated the procedure well. IMPRESSION: Normal-appearing colon from rectum to cecum with no evidence of colorectal neoplasia Scattered sigmoid diverticulosis. RECOMMENDATIONS: Findings of this examination were discussed with the patient as well as her family.. She was advised to have repeat screening colonoscopy at age 82.
[2024-12-14 14:55] VITALS: BP 118/58; PULSE 68; RESP 14
== END 2024-12-14 15:17 | disposition home or self-care (01) ==
LOC: ORWHC2ENDO 12:07
PROVIDERS: ATTEND Internal Medicine Gastroenterology
DX: Z12.11 Encounter for screening for malignant neoplasm of colon (principal); K57.30 Diverticulosis of large intestine without perforation or abscess without bleeding; I10 Essential (primary) hypertension; I25.10 Atherosclerotic heart disease of native coronary artery without angina pectoris; Z95.1 Presence of aortocoronary bypass graft; E78.5 Hyperlipidemia, unspecified; Q23.81 Bicuspid aortic valve; Z88.8 Allergy status to other drugs, medicaments and biological substances; Z79.899 Other long term (current) drug therapy
CPT/HCPCS: J2704; G0121